=== PATIENT | female | born 1950 | race Asian ===

== ENCOUNTER → 2019-01-16 | Outpatient (CLI) | payer MEDICARE, OTHER | END | disposition home or self-care (01) | LOC: RADPV 12:44 | PROVIDERS: ATTEND Podiatrist | DX: M77.32 Calcaneal spur, left foot (principal); M19.072 Primary osteoarthritis, left ankle and foot ==

== ENCOUNTER 2020-05-29 06:35 | Day surgery (SDC) | payer MEDICARE, OTHER ==
[2020-05-27 13:32] LABS: COVID AG,FIA SOURCE NASOPHARYNGEAL
[~2020-05-29] VITALS: Ht 162.6 cm; Wt 81.4 kg
[~2020-05-29 06:35] MED LIST: ASPI-728 PO; ATEN-72 PO; KETOROLAC TROMETHAMINE 0.5% 5 ML OPHTHALMIC SOLUTION ONE; LISI-662 PO; MOXIFLOXACIN HCL 0.5% 3 ML OPHTHALMIC SOLUTION ONE; MULT-1259 PO; PHENYLEPHRINE HCL 2.5% 2 ML OPHTHALMIC SOLUTION ONE; RINGERS SOLUTION,LACTATED 500 ML IV ONE; SIMV-260 PO; TROPICAMIDE 1% 2 ML OPHTHALMIC SOLUTION ONE
[2020-05-29] MEDS ORDERED: HYALURONATE SODIUM 12 MG/ML 0.8 ML SYRINGE IO ONE (06:36)
[2020-05-29] MEDS ORDERED: EPINEPHrine 1:1,000 [1 MG/ML] AMP ET ONE (06:36)
[2020-05-29] MEDS ORDERED: POVIDONE-IODINE 10% 15 ML SOLUTION UD TP ONE (06:36)
[2020-05-29] MEDS ORDERED: HYALURONATE SOD/CHONDROITIN SOD 0.5 ML VIAL IO ONE (06:36)
[2020-05-29] MEDS ORDERED: TETRACAINE HCL VISCOUS 0.5% 5 ML OPHTHALMIC SOLUTION OU ONE (06:36)
[2020-05-29] MEDS ORDERED: LIDOCAINE/PF 1% 2 ML VIAL IM ONE (06:36)
[2020-05-29] MEDS ORDERED: BALANCED SALT 15 ML OPHTHALMIC IRRIG.SOLN IO ONE (06:36)
[2020-05-29] MEDS: TROPICAMIDE 1% 2 ML OPHTHALMIC SOLUTION OS SCH ×3 (07:05→07:18)
[2020-05-29] MEDS: PHENYLEPHRINE HCL 2.5% 2 ML OPHTHALMIC SOLUTION OS SCH ×3 (07:05→07:18)
[2020-05-29] MEDS: MOXIFLOXACIN HCL 0.5% 3 ML OPHTHALMIC SOLUTION OS SCH ×3 (07:05→07:18)
[2020-05-29] MEDS: KETOROLAC TROMETHAMINE 0.5% 5 ML OPHTHALMIC SOLUTION OS SCH ×3 (07:06→07:18)
== END 2020-05-29 10:00 | disposition home or self-care (01) ==
LOC: SURGERY 06:35
PROVIDERS: ATTEND Ophthalmology
DX: H25.12 Age-related nuclear cataract, left eye (principal); I10 Essential (primary) hypertension; Z79.82 Long term (current) use of aspirin; Z79.899 Other long term (current) drug therapy; Z20.828 Contact with and (suspected) exposure to other viral communicable diseases
CPT/HCPCS: 66984; 87426; C9803; J0171; J3490 ×2; J7120; V2632

== ENCOUNTER → 2022-09-01 | Outpatient (CLI) | payer MEDICARE, OTHER ==
[~2022-09-01] VITALS: Ht 165.1 cm; Wt 75.0 kg
[~2022-09-01] MED LIST changes: +ASPI-1450 PO; -ASPI-728 PO; -KETOROLAC TROMETHAMINE 0.5% 5 ML OPHTHALMIC SOLUTION ONE; -LISI-662 PO; +LISI-894 PO; -MOXIFLOXACIN HCL 0.5% 3 ML OPHTHALMIC SOLUTION ONE; -PHENYLEPHRINE HCL 2.5% 2 ML OPHTHALMIC SOLUTION ONE; -RINGERS SOLUTION,LACTATED 500 ML IV ONE; +ROSU20TA73 PO; -TROPICAMIDE 1% 2 ML OPHTHALMIC SOLUTION ONE
[2022-09-01 14:16] VITALS: BP 157/86
== END | disposition home or self-care (01) ==
LOC: SRCNTR 13:48
PROVIDERS: ATTEND Internal Medicine
DX: Z01.818 Encounter for other preprocedural examination (principal); I10 Essential (primary) hypertension; Z79.82 Long term (current) use of aspirin; Z79.899 Other long term (current) drug therapy; Z88.8 Allergy status to other drugs, medicaments and biological substances; Z90.710 Acquired absence of both cervix and uterus
CPT/HCPCS: 93005; G0463

== ENCOUNTER → 2022-09-04 | Outpatient (CLI) | payer MEDICARE, OTHER ==
[~2022-09-04] MED LIST changes: -MULT-1259 PO; -SIMV-260 PO
== END | disposition home or self-care (01) ==
LOC: RADMN 12:22
PROVIDERS: ATTEND Internal Medicine
DX: Z01.818 Encounter for other preprocedural examination (principal); M47.814 Spondylosis without myelopathy or radiculopathy, thoracic region; I77.1 Stricture of artery
CPT/HCPCS: 71046

== ENCOUNTER → 2023-11-30 | Outpatient (CLI) | payer MEDICARE, OTHER | END | disposition home or self-care (01) | LOC: SRCNTR 14:03 | PROVIDERS: ATTEND Internal Medicine | DX: Z01.810 Encounter for preprocedural cardiovascular examination (principal); I10 Essential (primary) hypertension; Z79.82 Long term (current) use of aspirin; Z79.899 Other long term (current) drug therapy | CPT/HCPCS: Q3014 ==